=== PATIENT | male | born 2000 | race Caucasian/White ===

== ENCOUNTER 2022-02-17 18:59 | Emergency (ER) | payer BC, SELFPAY ==
--- NOTE | ~2022-02-17 | XR_ITS ---
EXAMINATION: XR chest 1V portable Exam Date/Time: 02/17/2022 19:25 CDT CLINICAL HISTORY: CHEST PAIN, FEEL LIKE I CANT MOVE SINCE PT SMOKED MARIJUANA Comparison: None available. RESULT: Lines, tubes, and devices: None. Lungs and pleura: Clear. Cardiomediastinal silhouette: Normal cardiomediastinal silhouette. Other: No acute osseous or upper abdominal finding. IMPRESSION: No acute cardiopulmonary process Reviewed, dictated and finalized at location K.
[2022-02-17 19:07] VITALS: BP 130/72; PULSE 126; RESP 17; TEMP 36.6; O2SAT 100
--- NOTE | 2022-02-17 19:22 | ECG_ITS ---
Measurements Intervals [place] Rate: 103 P: 65 TX: 151 QRS: 23 QRSD: 116 T: 50 QT: 333 QTc: 436 Interpretive Statements SINUS TACHYCARDIA RIGHT BUNDLE BRANCH BLOCK ABNORMAL ECG Electronically Signed On 02-17-2022 20:40:43 CDT by Pritesh Pike D.O.
[2022-02-17 19:23] VITALS: BP 151/75; PULSE 110; RESP 14; O2SAT 100
--- NOTE | 2022-02-17 19:32 | PC.NURSE ---
Per ED MD Dr. José, no sitter required.
--- NOTE | 2022-02-17 19:41 | ED.ANXIETY ---
HPI - Anxiety General Chief Complaint: Anxiety Stated Complaint: anxiety Time Seen by Provider: 02/17/22 19:21 History of Present Illness HPI narrative: Patient states that he just took a bong hit, and is now feeling bad he is feeling quite anxious, thinks that he is having heart attack, and feels also very tired and weak. No nausea vomiting, he has used marijuana in the past Related Data Home Medications Medication Instructions Recorded Confirmed No Home Medications 02/17/22 02/17/22 Allergies Allergy/AdvReac Type Severity Reaction Status Date / Time No Known Allergies Allergy Verified 02/17/22 19:07 Review of Systems Review of Systems: CONST: Generalized weakness HEENT: Dry mouth C/V: Chest tightness RESP: Feeling of difficulty breathing GI: No nausea vomiting BACK: No back pain M/S: Muscles feel weak. SKIN: No rash. NEURO: [No focal numbness or weakness] PSYCH: Anxious [facility] Past Medical History Medical History No active medical problems Social History Social History Substance use type: marijuana Exam Narrative: EXAMINATION OF ORGAN SYSTEMS/BODY AREAS: Constitutional: Vital signs per nursing GENERAL: Appears tired HEAD: Normal with no signs of head trauma. EYES: EOMI, conjunctiva normal ENT: Hearing grossly intact LUNGS: Nonlabored breathing. Clear lungs to auscultation bilaterally HEART: Tachycardia ABD: Nondistended EXT: Normal range of motion SKIN: No rashes or lesions. NEURO: Alert and oriented x 3. No gross focal sensory or strength deficits. PSYCH: Appears tired but also somewhat anxious Course Course Emergency Course: 21-year-old male presents here feeling quite anxious after using marijuana, vital signs initially tachycardic here, on exam clear lungs, tired patient, I will obtain an EKG and chest x-ray to rule out pneumothorax, these are normal, patient is reassured and stable for discharge home. Vital Signs Vital signs: Vital Signs Temperature 97.8 F 02/17/22 19:07 Pulse Rate 126 H 02/17/22 19:07 Respiratory Rate 17 02/17/22 19:07 Blood Pressure 130/72 02/17/22 19:07 Pulse Oximetry 100 02/17/22 19:07 Temperature 97.8 F 02/17/22 19:07 Pulse Rate 110 H 02/17/22 19:23 Respiratory Rate 14 02/17/22 19:23 Blood Pressure 151/75 H 02/17/22 19:23 Pulse Oximetry 100 02/17/22 19:23 MDM - Anxiety ECG Data EKG #1: ECG completion date: 02/17/22 ECG completion time: 19:30 Interpretation: EKG - 12-Lead: Performed at 1930. Interpreted by me. [Sinus rhythm]. Rate 103. [Normal] axis. DC-interval 151. QRS duration 116. QTc 392. No ST segment elevation or depression. T-wave normal. Impression: No EKG evidence of acute ischemia or dysrhythmia. Discharge Plan Discharge Clinical Impression: Acute anxiety, Marijuana use Patient Disposition: Home, Self-Care Condition: Stable Instructions: Antibiotic Form Prescriptions: No Action No Home Medications RF: 0 Follow-up/Referrals: PHYSICIAN,CONSTRUCTION SAFETY CONSULTANT [Primary Care Provider] -
[2022-02-17 21:10] VITALS: BP 131/81; PULSE 79; RESP 18; TEMP 36.6; O2SAT 99
== END 2022-02-17 21:11 | disposition home or self-care (01) ==
PROVIDERS: Emergency Provider Emergency Medicine
DX: F41.9 Anxiety disorder, unspecified (principal); F12.90 Cannabis use, unspecified, uncomplicated; R00.0 Tachycardia, unspecified; I45.10 Unspecified right bundle-branch block
CPT/HCPCS: 71045; 93005; 99283